=== PATIENT | male | born 1980 | race Caucasian/White ===

== ENCOUNTER 2018-01-23 02:13 | Emergency (ER) | payer OTHER ==
[2018-01-23 02:35] VITALS: BMI 30.1
[2018-01-23] MEDS ORDERED: SODIUM CHLORIDE 1,000 ML IV STA (02:39)
[2018-01-23] MEDS ORDERED: ONDANSETRON 4 MG/2 ML VIAL IVPUSH ONE (02:45)
--- NOTE | 2018-01-23 02:45 | PDOC ---
History of Present Illness - General History Source: Patient - History of Present Illness Initial Comments: 01/23/18 05:15 37 year old male c/o RUQ pain and vomiting 29 mins after eating thai food. patient denies diarrhea, and urinary symptoms. patient reports that pain from the RUQ radiates to the right flank. 01/23/18 06:08 Abdominal Pain Onset Location: reports: RUQ <Poppy Gomez - Last Filed: 01/23/18 06:50> <Drea Pascal - Last Filed: 01/23/18 09:24> - General Chief Complaint: Pain Stated Complaint: ABD PAIN Time Seen by Provider: 01/23/18 02:23 Past History - Suicide/Smoking/Psychosocial Hx Smoking History: Current every day smoker Have you smoked in the past 12 months: Yes Number of Cigarettes Smoked Daily: 1 Information on smoking cessation initiated: No Hx Alcohol Use: Yes Drug/Substance Use Hx: No <Poppy Gomez - Last Filed: 01/23/18 06:50> <Drea Pascal - Last Filed: 01/23/18 09:24> - Past Medical History Allergies/Adverse Reactions: Allergies Allergy/AdvReac Type Severity Reaction Status Date / Time No Known Allergies Allergy Verified 01/23/18 02:32 Home Medications: Ambulatory Orders NK [No Known Home Medication] 01/23/18 Review of Systems - Review of Systems Able to Perform ROS?: Yes Is the patient limited Indonesian proficient: No Constitutional: No: Symptoms Reported, See HPI, Chills, Diaphoresis, Fever, Loss of Appetite, Malaise, Night Sweats, Weakness, Weight Stable, Unintentional Wgt. Loss, Unexplained wgt Loss, Other ABD/GI: Yes: Nausea, Vomiting, Abdominal cramping : Yes: Flank Pain. No: Symptoms Reported, See HPI, Burning, Dysuria, Discharge, Frequency, Hematuria, Incontinence, Pain, Urgency, Testicular Mass, Testicular Swelling, Lesions, Testicular Pain, Other <Poppy Gomez - Last Filed: 01/23/18 06:50> *Physical Exam - Vital Signs Last Vital Signs Temp Pulse Resp BP Pulse Ox 98.8 F 73 19 144/87 100 01/23/18 02:15 01/23/18 02:15 01/23/18 02:15 01/23/18 02:15 01/23/18 02:15 - Physical Exam General Appearance: Yes: Appropriately Dressed Respiratory/Chest: positive: Lungs Clear, Normal Breath Sounds Gastrointestinal/Abdominal: positive: Normal Bowel Sounds, Tender (RUQ), Soft Musculoskeletal: positive: Normal Inspection. negative: CVA Tenderness Extremity: positive: Normal Capillary Refill, Normal Inspection, Normal Range of Motion Integumentary: positive: Normal Color, Dry, Warm Neurologic: positive: Fully Oriented, Alert, Normal Mood/Affect <Poppy Gomez - Last Filed: 01/23/18 06:50> - Vital Signs Last Vital Signs Temp Pulse Resp BP Pulse Ox 98.4 F 75 16 115/77 98 01/23/18 05:45 01/23/18 05:45 01/23/18 05:45 01/23/18 05:45 01/23/18 05:45 <Drea Pascal - Last Filed: 01/23/18 09:24> ED Treatment Course - LABORATORY CBC & Chemistry Diagram: 01/23/18 02:48 01/23/18 02:48 <Poppy Gomez - Last Filed: 01/23/18 06:50> - LABORATORY CBC & Chemistry Diagram: 01/23/18 02:48 01/23/18 02:48 - ADDITIONAL ORDERS Additional order review: Laboratory Results 01/23/18 01/23/18 02:48 02:48 Sodium 137 Potassium 4.0 Chloride 102 Carbon Dioxide 30 Anion Gap 5 L BUN 11 Creatinine 0.7 Creat Clearance w eGFR > 60 Random Glucose 155 H Calcium 8.4 L Total Bilirubin 0.6 AST 311 H ALT 228 H Alkaline Phosphatase 97 Total Protein 7.3 Albumin 3.9 Lipase 82 Urine Color Yellow Urine Appearance Slcloudy Urine pH 7.0 Ur Specific Sellers 1.018 Urine Protein Negative Urine Glucose (UA) Negative Urine Ketones Negative Urine Blood Negative Urine Nitrite Negative Urine Bilirubin Negative Urine Urobilinogen 4.0 e.u/dl Ur Leukocyte Esterase Negative 01/23/18 02:48 RBC 4.88 MCV 86.6 MCHC 32.9 RDW 13.9 MPV 8.6 Neutrophils % 80.3 Lymphocytes % 12.8 Monocytes % 5.5 Eosinophils % 0.9 Basophils % 0.5 - Medications Given in the ED: ED Medications Discontinued Medications Generic Name Dose Route Start Last Admin Trade Name Freq PRN Reason Stop Dose Admin Sodium Chloride 1,000 mls @ 1,000 mls/hr 01/23/18 02:39 01/23/18 02:54 Normal Saline - IV 01/23/18 03:38 1,000 mls/hr ASDIR STA Administration Morphine Sulfate 4 mg 01/23/18 04:24 01/23/18 04:39 Morphine Injection - IVPUSH 01/23/18 04:25 4 mg ONCE ONE Administration Ondansetron HCl 4 mg 01/23/18 02:45 01/23/18 02:54 Zofran Injection IVPUSH 01/23/18 02:46 4 mg ONCE ONE Administration <Drea Pascal - Last Filed: 01/23/18 09:24> Progress Note - Progress Note Progress Note: A: RUQ abdominal pain P: LABS IVF zofran pain control Abdominal US: pending. patient signed out to Drea Pascal [employer] <Poppy Gomez - Last Filed: 01/23/18 06:50> Medical Decision Making - Medical Decision Making 01/23/18 09:23 pt improved pain has resolved, neg nausea neg vomiting in ER US negative for gallbladder pos fatty liver results discussed with pt, he admits he drinks ETOH daily, I have discussed drinking can affect his liver and pt should stop drinking speak with PMD about the plan. lab results given to pt and his who understand pt must follow up with PMD this week. all questions asked and answered at discharge. <Drea Pascal - Last Filed: 01/23/18 09:24> *DC/Admit/Observation/Transfer <Poppy Gomez - Last Filed: 01/23/18 06:50> <Drea Pascal - Last Filed: 01/23/18 09:24> Diagnosis at time of Disposition: Abdominal pain Qualifiers: Abdominal location: right upper quadrant Qualified Code(s): R10.11 - Right upper quadrant pain - Discharge Dispostion Condition at time of disposition: Fair - Referrals Referrals: Selam Knott MD [Primary Care Provider] - - Patient Instructions - Post Discharge Activity
[2018-01-23] MEDS ORDERED: ONDANSETRON 4 MG/2 ML VIAL ONE (02:49)
[2018-01-23 02:57] LABS: BASO % 0.5 % (0-2.0); EOS % 0.9 % (0-4.5); HEMATOCRIT 42.3 % (35.4-49); HEMOGLOBIN 13.9 GM/dL (11.7-16.9); LYMPH % 12.8 % (8-40); MCH 28.6 pg (25.7-33.7); MCHC 32.9 g/dl (32.0-35.9); MEAN CELL VOLUME 86.6 fl (80-96); MEAN PLT VOLUME 8.6 fl (7.5-11.1); MONO % 5.5 % (3.8-10.2); NEUT % 80.3 % (42.8-82.8); PLATELET COUNT 184 K/MM3 (134-434); RBC 4.88 M/mm3 (4.00-5.60); RDW 13.9 % (11.9-15.9); WHITE BLOOD COUNT 12.6 K/mm3 (4.0-10.0)
[2018-01-23 02:58] LABS: URINE APPEARANCE SLCLOUDY; URINE BILIRUBIN NEGATIVE (<2.0 mg/dL); URINE COLOR YELLOW; URINE GLUCOSE (UA) NEGATIVE (NEGATIVE); URINE KETONE NEGATIVE (NEGATIVE); URINE LEUK ESTERASE NEGATIVE (NEGATIVE); URINE NITRITE NEGATIVE (NEGATIVE); URINE PROTEIN NEGATIVE (NEGATIVE); URINE UROBILINOGEN 4.0 E.U/dl mg/dL (0.2-1.0)
[2018-01-23 03:24] LABS: ALBUMIN 3.9 g/dl (3.4-5.0); ALK PHOS 97 U/L (45-117); ANION GAP 5 MMOL/L (8-16); BILIRUBIN,TOTAL 0.6 mg/dL (0.2-1); BLOOD UREA NITROGEN 11 mg/dL (7-18); CALCIUM 8.4 mg/dL (8.5-10.1); CHLORIDE 102 mmol/L (98-107); CO2 30 mmol/L (21-32); CREATININE 0.7 mg/dL (0.55-1.3); GLUCOSE,RANDOM 155 mg/dL (74-106); LIPASE 82 U/L (73-393); SGOT/AST 311 U/L (15-37); SGPT/ALT 228 U/L (13-61); SODIUM 137 mmol/L (136-145); TOT PROT 7.3 g/dl (6.4-8.2)
[2018-01-23] MEDS ORDERED: morphine CARPU-JECT 4 MG/1 ML DISP.SYRIN IVPUSH ONE (04:24)
[2018-01-23] MEDS ORDERED: morphine SULFATE 4 MG/ML VIAL ONE (04:34)
[2018-01-23 09:38] VITALS: BP 121/72; PULSE 66; TEMP 98.2
--- NOTE | 2018-01-23 13:22 | EKG ---
Test Reason : Blood Pressure : / mmHG Vent. Rate : 082 BPM Atrial Rate : 082 BPM P-R Int : 134 ms QRS Dur : 098 ms QT Int : 386 ms P-R-T Axes : 054 059 016 degrees QTc Int : 450 ms POOR DATA QUALITY, INTERPRETATION MAY BE ADVERSELY AFFECTED NORMAL SINUS RHYTHM NONSPECIFIC T WAVE ABNORMALITY ABNORMAL ECG NO PREVIOUS ECGS AVAILABLE Confirmed by RAVEN GAYTAN, DELROY ([id number]) on 01/23/2018 1:22:17 PM Referred By: Confirmed By:DELROY CARBAJAL MD
== END 2018-01-23 09:38 | disposition home or self-care (01) ==
LOC: JER 02:13
PROC: 3E033NZ Introduction of Analgesics, Hypnotics, Sedatives into Peripheral Vein, Percutaneous Approach (ICD-10-PCS; principal; 2018-01-23)
PROC: 3E033GC Introduction of Other Therapeutic Substance into Peripheral Vein, Percutaneous Approach (ICD-10-PCS; 2018-01-23)
PROC: 3E0337Z Introduction of Electrolytic and Water Balance Substance into Peripheral Vein, Percutaneous Approach (ICD-10-PCS; 2018-01-23)
DX: R10.11 Right upper quadrant pain (principal); F17.210 Nicotine dependence, cigarettes, uncomplicated
CPT/HCPCS: 36415; 76700-TC; 80053; 81003; 83690; 85025; 93005; 93010; 99283-25; J7030